=== PATIENT | male | born 1945 | race Caucasian/White ===

== ENCOUNTER 2019-09-15 09:05 | Emergency (ER) | payer OTHER ==
[~2019-09-15] VITALS: Ht 175.3 cm; Wt 95.3 kg
[2019-09-15] MEDS ORDERED: METFORMIN HCL500 M3 PO (09:17)
[2019-09-15] MEDS ORDERED: BENAZEPRIL-HCT1 EA10 PO (09:17)
[2019-09-15] MEDS ORDERED: TIMOL 0.5%-BRIM10 ML OPHTHALMIC (09:18)
[2019-09-15 11:39] VITALS: BP 123/50
== END 2019-09-15 11:39 | disposition home or self-care (01) ==
LOC: ER 09:05
DX: S61.211A Laceration without foreign body of left index finger without damage to nail, initial encounter (principal); I10 Essential (primary) hypertension; E11.9 Type 2 diabetes mellitus without complications; E78.5 Hyperlipidemia, unspecified; Z79.899 Other long term (current) drug therapy; W29.8XXA Contact with other powered hand tools and household machinery, initial encounter; Y93.89 Activity, other specified; Y92.89 Other specified places as the place of occurrence of the external cause; Y99.8 Other external cause status